=== PATIENT | female | born 2005 ===

== ENCOUNTER 2024-12-17 12:49 | Day surgery (SDC) | payer OTHER ==
[~2024-12-17] VITALS: Ht 157.5 cm; Wt 60.2 kg
[2024-12-17] MEDS ORDERED: AMPDEX30CR (13:06)
[2024-12-17] MEDS ORDERED: ABILIFY MYCITE2 M2 (13:06)
[2024-12-17] MEDS ORDERED: LAMO100 (13:06)
[2024-12-17] MEDS ORDERED: Budeprion Xl300 MG (13:06)
[2024-12-17] MEDS ORDERED: Midazolam HCL 1 MG/ML 5MLVIAL ONE (13:49)
--- NOTE | 2024-12-17 14:11 | NUR ---
12/17/24 1411 Flores Mcclellan PT. DENIES ANY PAIN
== END 2024-12-17 14:37 | disposition home or self-care (01) ==
LOC: ORSCSDS 12:49
PROVIDERS: Internal Medicine Gastroenterology
PROC: 0DJ08ZZ Inspection of Upper Intestinal Tract, Via Natural or Artificial Opening Endoscopic (ICD-10-PCS; principal; 2024-12-17 14:15)
DX: K21.9 Gastro-esophageal reflux disease without esophagitis (principal); F50.20 Bulimia nervosa, unspecified; Z79.899 Other long term (current) drug therapy
CPT/HCPCS: J2250; J2704; J7120